=== PATIENT | male | born 1945 | race Caucasian/White ===

== ENCOUNTER 2018-04-27 07:43 | Outpatient (CLI) | payer MEDICARE, BC, SELFPAY ==
[2018-04-27 08:03] LABS: Abs Immature Grans 0.01 k/cumm (0.0-0.09); Absolute Basophil Count 0.03 k/cumm (0.0-0.2); Absolute Lymphocyte Count 0.77 k/cumm (1.2-3.4); Absolute Monocyte Count 0.58 k/cumm (0.11-0.7); Absolute Neutrophil Count 3.41 k/cumm (1.2-6.7); Basophils % 0.6; HCT 32.1 % (40.0-50.0); HGB 10.1 g/dL (13.5-17.5); Immature Grans % 0.2; Lymphocytes % 15.4; Mean Corp. HGB Concentration 31.5 g/dL (32.0-36.0); Mean Corpuscular Hemoglobin 30.1 pg (27.0-33.0); Mean Corpuscular Volume 95.8 fL (80-95); Mean Platelet Volume 10.4 fL (8.0-11.0); Monocytes % 11.6; Neutrophils % 68.2; Platelet Count 199 x1000/uL (130-400); RBC 3.35 m/cumm (4.50-6.00); RBC Distribution Width 15.7 % (11.8-14.1)
[2018-04-27 08:16] LABS: ALT 14 U/L (12-78); AST 12 U/L (15-37); Albumin 3.1 g/dL (3.4-5.0); Alkaline Phosphatase 119 U/L (46-116); Anion Gap 6.6 mmol/L (3-11); BUN 17 mg/dL (7-18); Bilirubin, Total 0.5 mg/dL (0.2-1.0); CO2 29.4 mmol/L (21.0-32.0); CREATININE 0.84 mg/dL (0.70-1.30); Calcium 8.3 mg/dL (8.5-10.1); Chloride 102 mmol/L (98-107); Glucose 78 mg/dL (70-100); Potassium 3.7 mmol/L (3.5-5.1); Sodium 138 mmol/L (136-145); Total Protein 6.8 g/dL (6.4-8.2)
[2018-04-28 09:36] LABS: PSA, Diagnostic 0.1 ng/ml (0-6.5)
[2018-04-30 13:40] LABS: Testosterone, Total <7.0 ng/dL (240-950)
== END 2018-04-27 07:44 ==
PROVIDERS: PCP Nurse Practitioner Family; Visit Provider Internal Medicine
DX: C61 Malignant neoplasm of prostate (principal); C79.51 Secondary malignant neoplasm of bone
CPT/HCPCS: 36415; 80053; 84403; 84153; 85025

== ENCOUNTER 2018-04-27 15:17 | Outpatient (CLI) | payer MEDICARE, BC, SELFPAY ==
--- NOTE | 2018-04-27 15:27 | DI.REPORT_ITS ---
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 In comparison with the previous examination of 12/28 there is markedly increased radiodensity of the left hemipelvis in an area previously apparently larger replaced by metastatic lesion. No acute fracture identified. There are marked degenerative changes of both hips and SI joints. CONCLUSION: No evidence of acute injury. Increased sclerosis of presumed osseous metastases since 12/28/17. I would note that the appearance of the left hemipelvis does have an appearance which would be consistent with Paget's disease and clinical correlation is requested regarding any known history of Paget's disease.
== END 2018-04-27 15:18 ==
PROVIDERS: PCP Nurse Practitioner Family; Visit Provider Nurse Practitioner Adult Health
DX: C61 Malignant neoplasm of prostate (principal); C79.51 Secondary malignant neoplasm of bone; M16.0 Bilateral primary osteoarthritis of hip; M53.3 Sacrococcygeal disorders, not elsewhere classified
CPT/HCPCS: 73502; 36415; 80053; 84403; 84153; 85025

== ENCOUNTER 2018-05-22 00:25 | Outpatient (CLI) | payer MEDICARE, BC, SELFPAY ==
--- NOTE | 2018-05-22 08:30 | DI.NM_ITS ---
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 There are areas of increased radiotracer uptake seen in the pelvis involving both right and left pubic rami and portions of the sacrum. There is also increased radiotracer uptake at the T12 vertebral body, ribs bilaterally and the right scapula. The findings are consistent with osseous metastatic disease. There is very faint renal enhancement. There is activity seen in the urinary bladder. IMPRESSION: Findings consistent with osseous metastatic disease. If there are prior examinations for comparison, they may be submitted for comparison and an Addendum will be issued at that time.
[2018-05-22 08:52] LABS: Abs Immature Grans 0.01 k/cumm (0.0-0.09); Absolute Basophil Count 0.03 k/cumm (0.0-0.2); Absolute Eosinophil Count 0.12 k/cumm (0.0-0.7); Absolute Lymphocyte Count 0.77 k/cumm (1.2-3.4); Absolute Monocyte Count 0.49 k/cumm (0.11-0.7); Absolute Neutrophil Count 3.17 k/cumm (1.2-6.7); Basophils % 0.7; Eosinophils % 2.6; HCT 30.7 % (40.0-50.0); HGB 9.8 g/dL (13.5-17.5); Immature Grans % 0.2; Lymphocytes % 16.8; Mean Corp. HGB Concentration 31.9 g/dL (32.0-36.0); Mean Corpuscular Hemoglobin 30.2 pg (27.0-33.0); Mean Corpuscular Volume 94.8 fL (80-95); Mean Platelet Volume 10.1 fL (8.0-11.0); Monocytes % 10.7; Platelet Count 272 x1000/uL (130-400); RBC 3.24 m/cumm (4.50-6.00); White Blood Cell Count 4.59 k/cumm (4.4-10.8)
[2018-05-22 09:05] LABS: Hypochromasia 2+
[2018-05-22] MEDS: Omnipaque 350 MG/ML 50 ML BTL IJ (09:05)
[2018-05-22] MEDS: Breeza Beverage 473 ML BTL PO (09:06)
[2018-05-22 09:10] LABS: ALT 19 U/L (12-78); AST 15 U/L (15-37); Albumin 3.1 g/dL (3.4-5.0); Alkaline Phosphatase 109 U/L (46-116); Anion Gap 7.6 mmol/L (3-11); BUN 23 mg/dL (7-18); Bilirubin, Total 0.3 mg/dL (0.2-1.0); CO2 28.4 mmol/L (21.0-32.0); CREATININE 0.68 mg/dL (0.70-1.30); Calcium 8.3 mg/dL (8.5-10.1); Chloride 104 mmol/L (98-107); Glucose 84 mg/dL (70-100); Potassium 4.3 mmol/L (3.5-5.1); Sodium 140 mmol/L (136-145); Total Protein 6.5 g/dL (6.4-8.2)
--- NOTE | 2018-05-22 10:05 | DI.CT_ITS ---
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 No priors. CT SCAN OF THE ABDOMEN AND PELVIS: The liver is normal in size. There is a mass in the posterior segment of the right lobe of the liver, measuring 4.5 cm transverse x 2.7 cm AP. It shows peripheral enhancement on the arterial and hepatic phases isodense to the aorta. There is progressive opacification of the mass between the arterial and the venous phase. The findings are most suggestive of a hepatic hemangioma. There are hypodense lesions seen within the liver, which show no enhancement. They are too small for further characterization but likely reflect cysts. The portal and superior mesenteric veins are patent. The gallbladder is negative by CT criteria. There is no biliary ductal dilatation. The pancreas is unremarkable, as are the spleen and adrenal glands. The kidneys show normal and symmetric enhancement. No suspicious solid renal mass or obstruction is identified. There is a hypodense lesion in the superior aspect of the right kidney. It is too small for further characterization, but likely reflects a cyst. The urinary bladder is intact. It is incompletely distended. There is apparent thickening of the wall of the urinary bladder. This may be due to underdistention. Inflammatory or infectious process cannot be excluded. The abdominal aorta is of normal caliber. There is mild atherosclerosis present. There does appear to be a small amount of abdominal ascites present. There is a large amount of stool throughout the colon, which may represent constipation. The bowel shows no evidence of obstruction or inflammation. No findings to suggest an acute appendicitis are present. There are findings consistent with extensive osseous metastatic disease. There is mild diffuse edema seen in the subcutaneous tissues in the abdomen and pelvis. IMPRESSION: 1. Extensive osseous sclerosis consistent with osseous metastatic disease. 2. Peripherally and progressively enhancing mass involving the right lobe of the liver, most suggestive of a hepatic hemangioma. 3. Large amount of retained stool throughout the colon suggesting constipation. 4. Generalized subcutaneous edema. CT SCAN OF THE CHEST: The thoracic aorta is of normal caliber with mild atherosclerosis. The heart size is within normal limits. No significant pericardial effusion is present. There is a small left pleural effusion and a moderate-sized right pleural effusion. There is a 3 mm noncalcified pulmonary nodule in the right lower lobe laterally. There is an area of consolidation involving the right upper lobe. The lungs are otherwise clear. No pneumothorax is seen. The tracheobronchial tree is unremarkable. There is osseous metastatic disease seen in the spine and ribs. Involvement of the right scapula is also noted. There is loss of height of the T12 vertebral body. This was not present on the prior examination of the MRI of the thoracic spine from 12/21/17. The finding is suspicious for a pathologic fracture. There is a right convex scoliosis of the thoracic spine. IMPRESSION: 1. Findings of osseous metastatic disease. 2. Loss of height of the T12 vertebral body most suggestive of pathologic fracture. This is age indeterminate. This was not present on the MRI from 12/21/17. 3. Moderate-sized right pleural effusion and small left pleural effusion. 4. Opacity seen in the right upper lobe. This may represent atelectasis or pneumonia. Underlying mass cannot be excluded.
[2018-05-23 10:46] LABS: PSA, Diagnostic <0.1 ng/ml (0-6.5)
[2018-05-25 08:43] LABS: Testosterone, Total <7.0 ng/dL (240-950)
== END 2018-05-22 00:45 ==
PROVIDERS: PCP Nurse Practitioner Family; Visit Provider Internal Medicine
DX: C61 Malignant neoplasm of prostate (principal); C79.51 Secondary malignant neoplasm of bone; D18.03 Hemangioma of intra-abdominal structures; K59.00 Constipation, unspecified; R60.0 Localized edema; J90 Pleural effusion, not elsewhere classified; J98.4 Other disorders of lung
CPT/HCPCS: 36415; 74177; 78306; 80053; 84403; 71260; 84153; 85025; Q9967

== ENCOUNTER 2018-08-14 08:40 | Outpatient (CLI) | payer MEDICARE, BC, SELFPAY ==
[2018-08-14 09:04] LABS: Absolute Basophil Count 0.03 k/cumm (0.0-0.2); Absolute Eosinophil Count 0.42 k/cumm (0.0-0.7); Absolute Monocyte Count 0.37 k/cumm (0.11-0.7); Absolute Neutrophil Count 2.79 k/cumm (1.2-6.7); Basophils % 0.7; Eosinophils % 9.5; HCT 36.2 % (40.0-50.0); HGB 11.6 g/dL (13.5-17.5); Lymphocytes % 18.1; Mean Corpuscular Hemoglobin 28.9 pg (27.0-33.0); Mean Platelet Volume 9.9 fL (8.0-11.0); Monocytes % 8.4; Neutrophils % 63.3; Platelet Count 267 x1000/uL (130-400); RBC 4.02 m/cumm (4.50-6.00); White Blood Cell Count 4.41 k/cumm (4.4-10.8)
[2018-08-14 09:20] LABS: ALT 24 U/L (12-78); AST 18 U/L (15-37); Albumin 3.4 g/dL (3.4-5.0); Alkaline Phosphatase 115 U/L (46-116); Anion Gap 8.7 mmol/L (3-11); BUN 26 mg/dL (7-18); Bilirubin, Total 0.3 mg/dL (0.2-1.0); CO2 29.3 mmol/L (21.0-32.0); CREATININE 0.74 mg/dL (0.70-1.30); Calcium 9.2 mg/dL (8.5-10.1); Chloride 104 mmol/L (98-107); Glucose 78 mg/dL (70-100); Sodium 142 mmol/L (136-145)
[2018-08-15 08:49] LABS: PSA, Diagnostic <0.1 ng/ml (0-6.5)
[2018-08-17 08:31] LABS: Testosterone, Total <7.0 ng/dL (240-950)
== END 2018-08-14 09:00 ==
PROVIDERS: PCP Nurse Practitioner Family; Visit Provider Internal Medicine
DX: C61 Malignant neoplasm of prostate (principal); C79.51 Secondary malignant neoplasm of bone
CPT/HCPCS: 36415; 80053; 84403; 84153; 85025

== ENCOUNTER 2018-10-02 13:37 | Outpatient (CLI) | payer MEDICARE, BC, SELFPAY ==
[2018-10-02 14:28] LABS: Abs Immature Grans 0.01 k/cumm (0.0-0.09); Absolute Basophil Count 0.01 k/cumm (0.0-0.2); Absolute Lymphocyte Count 1.37 k/cumm (1.2-3.4); Absolute Monocyte Count 0.64 k/cumm (0.11-0.7); Absolute Neutrophil Count 5.12 k/cumm (1.2-6.7); Basophils % 0.1; Eosinophils % 1.4; HCT 34.2 % (40.0-50.0); Immature Grans % 0.1; Lymphocytes % 18.9; Mean Corp. HGB Concentration 32.2 g/dL (32.0-36.0); Mean Corpuscular Hemoglobin 30.2 pg (27.0-33.0); Mean Platelet Volume 10.5 fL (8.0-11.0); Monocytes % 8.8; Neutrophils % 70.7; Platelet Count 296 x1000/uL (130-400); RBC 3.64 m/cumm (4.50-6.00); RBC Distribution Width 15.5 % (11.8-14.1); White Blood Cell Count 7.25 k/cumm (4.4-10.8)
[2018-10-02 14:47] LABS: ALT 20 U/L (12-78); AST 13 U/L (15-37); Albumin 3.4 g/dL (3.4-5.0); Alkaline Phosphatase 126 U/L (46-116); Anion Gap 7.4 mmol/L (3-11); BUN 22 mg/dL (7-18); Bilirubin, Total 0.2 mg/dL (0.2-1.0); CO2 30.6 mmol/L (21.0-32.0); Calcium 8.9 mg/dL (8.5-10.1); Chloride 103 mmol/L (98-107); Glucose 97 mg/dL (70-100); Potassium 3.9 mmol/L (3.5-5.1); Sodium 141 mmol/L (136-145); Total Protein 6.7 g/dL (6.4-8.2)
[2018-10-03 10:05] LABS: PSA, Diagnostic <0.1 ng/ml (0-6.5)
[2018-10-06 10:27] LABS: Testosterone, Total <7.0 ng/dL (240-950)
== END 2018-10-02 13:57 ==
PROVIDERS: PCP Nurse Practitioner Family; Visit Provider Internal Medicine
DX: C61 Malignant neoplasm of prostate (principal); C79.51 Secondary malignant neoplasm of bone
CPT/HCPCS: 36415; 80053; 84403; 84153; 85025

== ENCOUNTER 2018-11-13 12:25 | Outpatient (CLI) | payer MEDICARE, BC, SELFPAY ==
[2018-11-13 12:49] LABS: Absolute Basophil Count 0.02 k/cumm (0.0-0.2); Absolute Eosinophil Count 0.13 k/cumm (0.0-0.7); Absolute Lymphocyte Count 0.88 k/cumm (1.2-3.4); Absolute Monocyte Count 0.53 k/cumm (0.11-0.7); Absolute Neutrophil Count 2.09 k/cumm (1.2-6.7); Basophils % 0.5; Eosinophils % 3.6; HCT 36.9 % (40.0-50.0); HGB 11.8 g/dL (13.5-17.5); Lymphocytes % 24.1; Mean Corpuscular Hemoglobin 29.7 pg (27.0-33.0); Mean Corpuscular Volume 92.9 fL (80-95); Mean Platelet Volume 10.2 fL (8.0-11.0); Monocytes % 14.5; Neutrophils % 57.3; Platelet Count 246 x1000/uL (130-400); RBC 3.97 m/cumm (4.50-6.00); RBC Distribution Width 14.4 % (11.8-14.1); White Blood Cell Count 3.65 k/cumm (4.4-10.8)
[2018-11-13 12:58] LABS: ALT 24 U/L (12-78); AST 17 U/L (15-37); Albumin 3.7 g/dL (3.4-5.0); Alkaline Phosphatase 141 U/L (46-116); Anion Gap 6.8 mmol/L (3-11); BUN 14 mg/dL (7-18); Bilirubin, Total 0.4 mg/dL (0.2-1.0); CO2 30.2 mmol/L (21.0-32.0); CREATININE 0.81 mg/dL (0.70-1.30); Calcium 8.9 mg/dL (8.5-10.1); Chloride 103 mmol/L (98-107); Glucose 96 mg/dL (70-100); Sodium 140 mmol/L (136-145); Total Protein 7.4 g/dL (6.4-8.2)
[2018-11-13 14:15] LABS: Cholesterol 241 mg/dL (50-200); HDL Cholesterol 64 mg/dL (40-60); LDL CHOLESTEROL 160 mg/dL (<100); Triglyceride 123 mg/dL (30-150)
[2018-11-14 09:24] LABS: PSA, Diagnostic <0.1 ng/ml (0-6.5)
[2018-11-15 10:52] LABS: Testosterone, Total 7.8 ng/dL (240-950)
== END 2018-11-13 12:45 ==
PROVIDERS: PCP Nurse Practitioner Family; Referring Provider Internal Medicine; Visit Provider Nurse Practitioner Family
DX: C61 Malignant neoplasm of prostate (principal); C79.51 Secondary malignant neoplasm of bone; E78.89 Other lipoprotein metabolism disorders
CPT/HCPCS: 36415; 80053; 80061; 83721; 84403; 84153; 85025

== ENCOUNTER 2018-12-12 08:28 | Outpatient (CLI) | payer MEDICARE, BC, SELFPAY ==
[2018-12-12 08:53] LABS: Absolute Basophil Count 0.02 k/cumm (0.0-0.2); Absolute Eosinophil Count 0.25 k/cumm (0.0-0.7); Absolute Lymphocyte Count 0.83 k/cumm (1.2-3.4); Absolute Monocyte Count 0.42 k/cumm (0.11-0.7); Absolute Neutrophil Count 2.46 k/cumm (1.2-6.7); Basophils % 0.5; Eosinophils % 6.3; HCT 35.7 % (40.0-50.0); HGB 11.4 g/dL (13.5-17.5); Lymphocytes % 20.9; Mean Corp. HGB Concentration 31.9 g/dL (32.0-36.0); Mean Corpuscular Hemoglobin 29.3 pg (27.0-33.0); Mean Corpuscular Volume 91.8 fL (80-95); Mean Platelet Volume 10.3 fL (8.0-11.0); Monocytes % 10.6; Neutrophils % 61.7; Platelet Count 220 x1000/uL (130-400); RBC 3.89 m/cumm (4.50-6.00); RBC Distribution Width 14.2 % (11.8-14.1); White Blood Cell Count 3.98 k/cumm (4.4-10.8)
[2018-12-12 09:06] LABS: ALT 25 U/L (12-78); AST 15 U/L (15-37); Albumin 3.7 g/dL (3.4-5.0); Alkaline Phosphatase 118 U/L (46-116); Anion Gap 7.9 mmol/L (3-11); BUN 26 mg/dL (7-18); Bilirubin, Total 0.3 mg/dL (0.2-1.0); CO2 29.1 mmol/L (21.0-32.0); Chloride 104 mmol/L (98-107); Glucose 69 mg/dL (70-100); Potassium 4.4 mmol/L (3.5-5.1); Sodium 141 mmol/L (136-145)
[2018-12-13 09:35] LABS: PSA, Diagnostic <0.1 ng/ml (0-6.5)
== END 2018-12-12 08:48 ==
PROVIDERS: PCP Nurse Practitioner Family; Visit Provider Nurse Practitioner Family
DX: C61 Malignant neoplasm of prostate (principal)
CPT/HCPCS: 36415; 80053; 84153; 85025

== ENCOUNTER 2019-02-20 11:59 | Outpatient (CLI) | payer MEDICARE, BC, SELFPAY ==
[2019-02-20 12:23] LABS: Absolute Basophil Count 0.03 k/cumm (0.0-0.2); Absolute Eosinophil Count 0.18 k/cumm (0.0-0.7); Absolute Lymphocyte Count 0.74 k/cumm (1.2-3.4); Absolute Monocyte Count 0.47 k/cumm (0.11-0.7); Absolute Neutrophil Count 2.42 k/cumm (1.2-6.7); Basophils % 0.8; Eosinophils % 4.7; HCT 36.5 % (40.0-50.0); HGB 11.9 g/dL (13.5-17.5); Lymphocytes % 19.3; Mean Corp. HGB Concentration 32.6 g/dL (32.0-36.0); Mean Corpuscular Hemoglobin 30.4 pg (27.0-33.0); Mean Corpuscular Volume 93.4 fL (80-95); Mean Platelet Volume 10.1 fL (8.0-11.0); Monocytes % 12.2; Platelet Count 205 x1000/uL (130-400); RBC 3.91 m/cumm (4.50-6.00); RBC Distribution Width 14.9 % (11.8-14.1); White Blood Cell Count 3.84 k/cumm (4.4-10.8)
[2019-02-20 12:47] LABS: ALT 25 U/L (12-78); AST 16 U/L (15-37); Albumin 3.9 g/dL (3.4-5.0); Alkaline Phosphatase 110 U/L (46-116); BUN 22 mg/dL (7-18); Bilirubin, Total 0.5 mg/dL (0.2-1.0); CREATININE 0.79 mg/dL (0.70-1.30); Calcium 8.9 mg/dL (8.5-10.1); Chloride 104 mmol/L (98-107); Glucose 89 mg/dL (70-100); Potassium 4.3 mmol/L (3.5-5.1); Sodium 140 mmol/L (136-145); Total Protein 7.5 g/dL (6.4-8.2)
[2019-02-21 08:45] LABS: PSA, Diagnostic <0.1 ng/ml (0-6.5)
[2019-02-23 16:16] LABS: Testosterone, Total <7.0 ng/dL (240-950)
== END 2019-02-20 12:19 ==
PROVIDERS: PCP Nurse Practitioner Family; Visit Provider Internal Medicine
DX: C61 Malignant neoplasm of prostate (principal)
CPT/HCPCS: 36415; 80053; 84403; 84153; 85025

== ENCOUNTER 2019-03-22 00:33 | Outpatient (CLI) | payer MEDICARE, BC, SELFPAY ==
--- NOTE | 2019-03-22 09:20 | DI.CT_ITS ---
SYMPTOM/DIAGNOSIS: PROSTATE CA METS TO MULTIPLE SITES C61. RESTAGING MET PROSTATE CA CT CHEST, ABDOMEN AND PELVIS: The study was carried out with intravenous administration of [address] CHEST: A right upper lobe mass is decreased in size when compared with the prior examination of 05/22/2018. No other pulmonary mass is identified. There is resolution of a right pleural effusion. No left pleural effusion is apparent. There is no evidence of hilar or mediastinal adenopathy. The heart is not enlarged. There is no evidence of pulmonary emboli. There is no evidence of an aortic aneurysm. When compared with the previous study again noted are the bony changes consistent with metastatic disease involving the ribs and spine. Again noted is a mild superior end plate compression fracture of the T-12 vertebral body. No new fractures are apparent. Again noted is a region of sclerosis involving the right scapula. There is a mild dextroscoliotic deformity of the dorsal spine. SUMMARY: Diminished prominence of what likely represents a right upper lobe mass is demonstrated. There is resolution of a right pleural effusion. Again noted, the findings consistent with bony metastasis without appreciable interval change when compared with the prior study. CT ABDOMEN AND PELVIS: A region of abnormality is noted in the right hepatic lobe unchanged, consistent with a hemangioma. No other focal abnormality is noted in the liver. The gallbladder is intact. The gallbladder is normal. There is no evidence of stones or ductal dilatation. The pancreas and spleen are intact save for small bilateral cortical cysts. The kidneys are unremarkable. There is no evidence of hydronephrosis. There is some prominence of the left adrenal gland likely representing hypertrophy. The right adrenal is unremarkable. There is no evidence of bowel obstruction or focal bowel abnormality. There is nothing to suggest an acute appendix. Evaluation of the bladder is limited secondary to artifacts generated by a left hip prosthesis. No localized bladder abnormality is seen. There is some slight thickening of the bladder wall which is likely secondary to suboptimal distension. The reproductive organs as visualized appear intact. There is no evidence of free fluid in the intraperitoneal space. When compared with the prior study again noted is diffuse bony metastatic disease. There has been considerable enlargement in an area of bony destruction involving the parasymphyseal region of the right pubic bone. No adenopathy is identified in the pelvis. SUMMARY: No intra-abdominal or pelvic adenopathy is identified. Again noted are diffuse bony metastasis and interval deterioration with enlarging lytic lesion noted in the right pubic bone. No adenopathy is apparent.
[2019-03-22 09:29] LABS: Absolute Basophil Count 0.02 k/cumm (0.0-0.2); Absolute Eosinophil Count 0.24 k/cumm (0.0-0.7); Absolute Lymphocyte Count 0.78 k/cumm (1.2-3.4); Absolute Monocyte Count 0.32 k/cumm (0.11-0.7); Absolute Neutrophil Count 2.22 k/cumm (1.2-6.7); Basophils % 0.6; Eosinophils % 6.7; HCT 36.6 % (40.0-50.0); HGB 12.3 g/dL (13.5-17.5); Lymphocytes % 21.8; Mean Corp. HGB Concentration 33.6 g/dL (32.0-36.0); Mean Corpuscular Hemoglobin 30.9 pg (27.0-33.0); Mean Platelet Volume 10.4 fL (8.0-11.0); Monocytes % 8.9; Platelet Count 212 x1000/uL (130-400); RBC 3.98 m/cumm (4.50-6.00); RBC Distribution Width 14.1 % (11.8-14.1); White Blood Cell Count 3.58 k/cumm (4.4-10.8)
[2019-03-22 09:39] LABS: ALT 23 U/L (12-78); AST 13 U/L (15-37); Albumin 3.6 g/dL (3.4-5.0); Alkaline Phosphatase 90 U/L (46-116); Anion Gap 9.5 mmol/L (3-11); BUN 18 mg/dL (7-18); Bilirubin, Total 0.4 mg/dL (0.2-1.0); CO2 27.5 mmol/L (21.0-32.0); Calcium 8.6 mg/dL (8.5-10.1); Chloride 104 mmol/L (98-107); Glucose 95 mg/dL (70-100); Potassium 4.3 mmol/L (3.5-5.1); Sodium 141 mmol/L (136-145); Total Protein 7.1 g/dL (6.4-8.2)
--- NOTE | 2019-03-22 10:30 | DI.NM_ITS ---
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 The study is compared with the prior bone scan of 05/22/18. Interval improvement is demonstrated with diminished prominence of the regions of increased photon density in the ribs, right scapula and spine. Also there is diminished activity in the pelvic metastases. There is symmetrical activity over the renal beds. The patient is status post left MURPHY. SUMMARY: When compared with the previous study, interval improvement is noted with diminished conspicuity of the bony metastases.
[2019-03-22] MEDS: Omnipaque 350 MG/ML 100 ML BTL IJ (11:10)
[2019-03-23 09:41] LABS: PSA, Diagnostic <0.1 ng/ml (0-6.5)
[2019-03-26 13:06] LABS: Testosterone, Total 8.5 ng/dL (240-950)
== END 2019-03-22 00:53 ==
PROVIDERS: PCP Nurse Practitioner Family; Visit Provider Internal Medicine
DX: C61 Malignant neoplasm of prostate (principal); C79.51 Secondary malignant neoplasm of bone; Z12.89 Encounter for screening for malignant neoplasm of other sites; R91.8 Other nonspecific abnormal finding of lung field
CPT/HCPCS: 36415; 74177; 78306; 80053; 84403; 71260; 84153; 85025; J3490

== ENCOUNTER 2019-04-12 15:11 | Outpatient (CLI) | payer MEDICARE, BC, SELFPAY ==
[2019-04-12 15:49] LABS: Absolute Basophil Count 0.02 k/cumm (0.0-0.2); Absolute Eosinophil Count 0.42 k/cumm (0.0-0.7); Absolute Lymphocyte Count 0.97 k/cumm (1.2-3.4); Absolute Neutrophil Count 2.31 k/cumm (1.2-6.7); Basophils % 0.5; Eosinophils % 10.2; HCT 36.3 % (40.0-50.0); Lymphocytes % 23.5; Mean Corp. HGB Concentration 33.1 g/dL (32.0-36.0); Mean Corpuscular Hemoglobin 30.7 pg (27.0-33.0); Mean Corpuscular Volume 92.8 fL (80-95); Mean Platelet Volume 10.8 fL (8.0-11.0); Monocytes % 9.7; Neutrophils % 56.1; Platelet Count 200 x1000/uL (130-400); RBC 3.91 m/cumm (4.50-6.00); RBC Distribution Width 13.8 % (11.8-14.1); White Blood Cell Count 4.12 k/cumm (4.4-10.8)
[2019-04-12 16:27] LABS: ALT 24 U/L (12-78); AST 14 U/L (15-37); Albumin 3.7 g/dL (3.4-5.0); Alkaline Phosphatase 94 U/L (46-116); BUN 20 mg/dL (7-18); Bilirubin, Total 0.3 mg/dL (0.2-1.0); CREATININE 0.77 mg/dL (0.70-1.30); Calcium 8.5 mg/dL (8.5-10.1); Chloride 105 mmol/L (98-107); Glucose 93 mg/dL (70-100); Potassium 4.6 mmol/L (3.5-5.1); Sodium 141 mmol/L (136-145); Total Protein 6.8 g/dL (6.4-8.2)
[2019-04-13 09:30] LABS: PSA, Diagnostic <0.1 ng/ml (0-6.5)
[2019-04-14 12:05] LABS: Testosterone, Total <7.0 ng/dL (240-950)
== END 2019-04-12 15:31 ==
PROVIDERS: PCP Nurse Practitioner Family; Visit Provider Nurse Practitioner Family
DX: C61 Malignant neoplasm of prostate (principal)
CPT/HCPCS: 36415; 80053; 84403; 84153; 85025

== ENCOUNTER 2019-06-29 11:03 | Outpatient (CLI) | payer MEDICARE, BC, SELFPAY ==
[2019-06-29 12:06] LABS: Abs Immature Grans 0.01 k/cumm (0.0-0.09); Absolute Basophil Count 0.03 k/cumm (0.0-0.2); Absolute Lymphocyte Count 0.95 k/cumm (1.2-3.4); Absolute Monocyte Count 0.35 k/cumm (0.11-0.7); Absolute Neutrophil Count 1.58 k/cumm (1.2-6.7); Eosinophils % 6.4; HCT 39.5 % (40.0-50.0); HGB 12.9 g/dL (13.5-17.5); Immature Grans % 0.3; Lymphocytes % 30.4; Mean Corp. HGB Concentration 32.7 g/dL (32.0-36.0); Mean Corpuscular Hemoglobin 30.9 pg (27.0-33.0); Mean Corpuscular Volume 94.7 fL (80-95); Mean Platelet Volume 10.5 fL (8.0-11.0); Monocytes % 11.2; Neutrophils % 50.7; Platelet Count 245 x1000/uL (130-400); RBC 4.17 m/cumm (4.50-6.00); RBC Distribution Width 13.8 % (11.8-14.1); White Blood Cell Count 3.12 k/cumm (4.4-10.8)
[2019-06-29 12:12] LABS: ALT 24 U/L (16-63); AST 14 U/L (15-37); Albumin 3.7 g/dL (3.4-5.0); Alkaline Phosphatase 80 U/L (46-116); Anion Gap 8.5 mmol/L (3-11); BUN 22 mg/dL (7-18); Bilirubin, Total 0.5 mg/dL (0.2-1.0); CO2 25.5 mmol/L (21.0-32.0); CREATININE 0.83 mg/dL (0.70-1.30); Chloride 104 mmol/L (98-107); Glucose 95 mg/dL (70-100); Potassium 4.6 mmol/L (3.5-5.1); Sodium 138 mmol/L (136-145); Total Protein 7.5 g/dL (6.4-8.2)
[2019-07-02 09:33] LABS: PSA, Diagnostic <0.1 ng/ml (0-6.5)
[2019-07-04 10:35] LABS: Testosterone, Total <7.0 ng/dL (240-950)
== END 2019-06-29 11:23 ==
PROVIDERS: PCP Nurse Practitioner Family; Visit Provider Nurse Practitioner Family
DX: C61 Malignant neoplasm of prostate (principal)
CPT/HCPCS: 36415; 80053; 84403; 84153; 84443; 85025

== ENCOUNTER 2019-09-26 10:38 | Outpatient (CLI) | payer MEDICARE, BC, SELFPAY ==
[2019-09-26 11:10] LABS: Absolute Basophil Count 0.04 k/cumm (0.0-0.2); Absolute Eosinophil Count 0.24 k/cumm (0.0-0.7); Absolute Lymphocyte Count 1.01 k/cumm (1.2-3.4); Absolute Monocyte Count 0.39 k/cumm (0.11-0.7); Absolute Neutrophil Count 2.25 k/cumm (1.2-6.7); Eosinophils % 6.1; HCT 39.5 % (40.0-50.0); HGB 13.2 g/dL (13.5-17.5); Lymphocytes % 25.7; Mean Corp. HGB Concentration 33.4 g/dL (32.0-36.0); Mean Corpuscular Hemoglobin 31.4 pg (27.0-33.0); Mean Platelet Volume 9.8 fL (8.0-11.0); Monocytes % 9.9; Neutrophils % 57.3; Platelet Count 224 x1000/uL (130-400); RBC Distribution Width 13.1 % (11.8-14.1); White Blood Cell Count 3.93 k/cumm (4.4-10.8)
[2019-09-26 12:07] LABS: ALT 18 U/L (16-63); AST 14 U/L (15-37); Albumin 3.7 g/dL (3.4-5.0); Alkaline Phosphatase 71 U/L (46-116); Anion Gap 7.5 mmol/L (3-11); BUN 16 mg/dL (7-18); Bilirubin, Total 0.5 mg/dL (0.2-1.0); CO2 29.5 mmol/L (21.0-32.0); CREATININE 0.84 mg/dL (0.70-1.30); Chloride 105 mmol/L (98-107); Glucose 95 mg/dL (74-106); Potassium 4.7 mmol/L (3.5-5.1); Sodium 142 mmol/L (136-145); Total Protein 6.6 g/dL (6.4-8.2)
[2019-09-27 10:18] LABS: PSA, Diagnostic <0.1 ng/mL (0.0-6.5)
[2019-09-28 10:42] LABS: Testosterone, Total <7.0 ng/dL (240-950)
== END 2019-09-26 10:58 ==
PROVIDERS: PCP Nurse Practitioner Family; Visit Provider Nurse Practitioner Family
DX: C61 Malignant neoplasm of prostate (principal)
CPT/HCPCS: 36415; 80053; 84403; 84153; 85025

== ENCOUNTER 2019-10-16 12:04 | Outpatient (CLI) | payer MEDICARE, BC, SELFPAY ==
[2019-10-16 12:36] LABS: Absolute Basophil Count 0.03 k/cumm (0.0-0.2); Absolute Eosinophil Count 0.17 k/cumm (0.0-0.7); Absolute Lymphocyte Count 0.92 k/cumm (1.2-3.4); Absolute Monocyte Count 0.27 k/cumm (0.11-0.7); Absolute Neutrophil Count 1.57 k/cumm (1.2-6.7); Eosinophils % 5.7; HCT 39.8 % (40.0-50.0); Lymphocytes % 31.1; Mean Corp. HGB Concentration 32.7 g/dL (32.0-36.0); Mean Corpuscular Hemoglobin 31.1 pg (27.0-33.0); Mean Corpuscular Volume 95.2 fL (80-95); Mean Platelet Volume 10.3 fL (8.0-11.0); Monocytes % 9.1; Neutrophils % 53.1; Platelet Count 231 x1000/uL (130-400); RBC 4.18 m/cumm (4.50-6.00); RBC Distribution Width 13.2 % (11.8-14.1); White Blood Cell Count 2.96 k/cumm (4.4-10.8)
[2019-10-16 12:38] LABS: ALT 19 U/L (16-63); AST 15 U/L (15-37); Alkaline Phosphatase 64 U/L (46-116); Anion Gap 8.2 mmol/L (3-11); BUN 16 mg/dL (7-18); Bilirubin, Total 0.4 mg/dL (0.2-1.0); CO2 29.8 mmol/L (21.0-32.0); CREATININE 0.91 mg/dL (0.70-1.30); Chloride 106 mmol/L (98-107); Glucose 97 mg/dL (74-106); Potassium 4.7 mmol/L (3.5-5.1); Sodium 144 mmol/L (136-145); Total Protein 7.3 g/dL (6.4-8.2)
[2019-10-17 14:01] LABS: PSA, Diagnostic <0.1 ng/mL (0.0-6.5)
== END 2019-10-16 12:24 ==
PROVIDERS: PCP Nurse Practitioner Family; Visit Provider Nurse Practitioner Family
DX: C61 Malignant neoplasm of prostate (principal)
CPT/HCPCS: 36415; 80053; 84403; 84153; 85025

== ENCOUNTER 2020-01-10 15:29 | Outpatient (RCR) | payer MEDICARE, BC, SELFPAY ==
[2020-01-10 16:03] LABS: Absolute Basophil Count 0.02 k/cumm (0.0-0.2); Absolute Eosinophil Count 0.21 k/cumm (0.0-0.7); Absolute Monocyte Count 0.34 k/cumm (0.11-0.7); Absolute Neutrophil Count 2.58 k/cumm (1.2-6.7); Basophils % 0.4; Eosinophils % 4.7; HCT 41.2 % (40.0-50.0); HGB 13.9 g/dL (13.5-17.5); Lymphocytes % 29.2; Mean Corp. HGB Concentration 33.7 g/dL (32.0-36.0); Mean Corpuscular Hemoglobin 31.7 pg (27.0-33.0); Mean Corpuscular Volume 93.8 fL (80-95); Mean Platelet Volume 10.3 fL (8.0-11.0); Monocytes % 7.6; Neutrophils % 58.1; Platelet Count 228 x1000/uL (130-400); RBC 4.39 m/cumm (4.50-6.00); RBC Distribution Width 12.8 % (11.8-14.1); White Blood Cell Count 4.45 k/cumm (4.4-10.8)
[2020-01-10 16:12] LABS: ALT 26 U/L (16-63); AST 20 U/L (15-37); Albumin 4.3 g/dL (3.4-5.0); Alkaline Phosphatase 79 U/L (46-116); Anion Gap 7.7 mmol/L (3-11); BUN 12 mg/dL (7-18); Bilirubin, Total 0.5 mg/dL (0.2-1.0); CO2 30.3 mmol/L (21.0-32.0); CREATININE 0.99 mg/dL (0.70-1.30); Calcium 9.1 mg/dL (8.5-10.1); Chloride 100 mmol/L (98-107); Glucose 81 mg/dL (74-106); Sodium 138 mmol/L (136-145); Total Protein 8.1 g/dL (6.4-8.2)
[2020-01-13 11:24] LABS: Testosterone, Total <7.0 ng/dL (240-950)
[2020-01-14 14:06] LABS: PSA, Ultrasensitive <0.01 ng/mL (<= 6.5)
== END 2020-02-03 23:59 | disposition home or self-care (01) ==
LOC: INF 15:29
PROVIDERS: PCP Nurse Practitioner Family; Visit Provider Internal Medicine
DX: C61 Malignant neoplasm of prostate (principal)
CPT/HCPCS: 36415; 80053; 84153; 84403; 85025

== ENCOUNTER 2020-03-20 02:40 | Outpatient (CLI) | payer MEDICARE, BC, SELFPAY ==
[2020-03-20 09:45] LABS: Absolute Basophil Count 0.02 k/cumm (0.0-0.2); Absolute Eosinophil Count 0.14 k/cumm (0.0-0.7); Absolute Lymphocyte Count 0.97 k/cumm (1.2-3.4); Absolute Monocyte Count 0.29 k/cumm (0.11-0.7); Absolute Neutrophil Count 2.04 k/cumm (1.2-6.7); Basophils % 0.6; HCT 40.1 % (40.0-50.0); HGB 13.1 g/dL (13.5-17.5); Mean Corp. HGB Concentration 32.7 g/dL (32.0-36.0); Mean Corpuscular Hemoglobin 30.9 pg (27.0-33.0); Mean Corpuscular Volume 94.6 fL (80-95); Mean Platelet Volume 10.8 fL (8.0-11.0); Monocytes % 8.4; Platelet Count 215 x1000/uL (130-400); RBC 4.24 m/cumm (4.50-6.00); RBC Distribution Width 13.4 % (11.8-14.1); White Blood Cell Count 3.46 k/cumm (4.4-10.8)
[2020-03-20 10:38] LABS: ALT 21 U/L (16-63); AST 16 U/L (15-37); Alkaline Phosphatase 60 U/L (46-116); Anion Gap 7.8 mmol/L (3-11); BUN 21 mg/dL (7-18); Bilirubin, Total 0.4 mg/dL (0.2-1.0); CO2 27.2 mmol/L (21.0-32.0); CREATININE 0.77 mg/dL (0.70-1.30); Calcium 9.2 mg/dL (8.5-10.1); Chloride 104 mmol/L (98-107); Glucose 86 mg/dL (74-106); Potassium 4.3 mmol/L (3.5-5.1); Sodium 139 mmol/L (136-145); Total Protein 6.8 g/dL (6.4-8.2)
[2020-03-21 10:31] LABS: PSA, Diagnostic <0.1 ng/mL (0.0-6.5)
[2020-03-23 14:38] LABS: Testosterone, Total 7.6 ng/dL (240-950)
== END 2020-03-20 03:00 ==
PROVIDERS: PCP Nurse Practitioner Family; Visit Provider Nurse Practitioner Family
DX: C61 Malignant neoplasm of prostate (principal)
CPT/HCPCS: 36415; 80053; 84403; 84153; 85025

== ENCOUNTER 2020-04-17 03:20 | Outpatient (CLI) | payer MEDICARE, BC, SELFPAY ==
[2020-04-17 13:45] LABS: Absolute Basophil Count 0.03 10^3/uL (0.0-0.2); Absolute Eosinophil Count 0.18 10^3/uL (0.0-0.7); Absolute Lymphocyte Count 1.01 10^3/uL (1.2-3.4); Absolute Monocyte Count 0.33 10^3/uL (0.1-0.8); Absolute Neutrophil Count 2.17 10^3/uL (1.2-6.7); Basophils % 0.8; Eosinophils % 4.8; HCT 37.4 % (40.0-50.0); HGB 12.4 g/dL (13.5-17.5); Lymphocytes % 27.2; MCH 31.5 pg (27.0-33.0); MCHC 33.2 % (32.0-36.0); MCV 94.9 fL (80-95); MPV 10.5 fL (8.0-11.0); Monocytes % 8.9; Neutrophils % 58.3; Nucleated RBC 0 %; Platelet Count 190 10^3/uL (130-400); RBC 3.94 10^6/uL (4.36-5.78); RDW 12.7 % (11.8-14.1); WBC 3.72 10^3/uL (4.4-10.8)
[2020-04-17 14:24] LABS: ALT 20 U/L (16-63); AST 13 U/L (15-37); Albumin 3.6 g/dL (3.4-5.0); Alkaline Phosphatase 85 U/L (46-116); Anion Gap 4.6 mmol/L (3-11); BUN 12 mg/dL (7-18); Bilirubin, Total 0.4 mg/dL (0.2-1.0); CO2 30.4 mmol/L (21.0-32.0); CREATININE 0.75 mg/dL (0.70-1.30); Calcium 8.7 mg/dL (8.5-10.1); Chloride 104 mmol/L (98-107); Glucose 91 mg/dL (74-106); Potassium 4.3 mmol/L (3.5-5.1); Sodium 139 mmol/L (136-145); Total Protein 6.5 g/dL (6.4-8.2)
[2020-04-18 11:34] LABS: PSA, Diagnostic <0.1 ng/mL (0.0-6.5)
== END 2020-04-17 03:40 ==
PROVIDERS: PCP Nurse Practitioner Family; Visit Provider Nurse Practitioner Family
DX: C61 Malignant neoplasm of prostate (principal)
CPT/HCPCS: 36415; 80053; 84403; 84153; 85025

== ENCOUNTER 2020-07-17 02:19 | Outpatient (CLI) | payer MEDICARE, BC, SELFPAY ==
[2020-07-17 10:15] LABS: Abs Immature Grans 0.01 10^3/uL (0.0-0.06); Absolute Basophil Count 0.02 10^3/uL (0.0-0.2); Absolute Eosinophil Count 0.17 10^3/uL (0.0-0.7); Absolute Lymphocyte Count 1.35 10^3/uL (1.2-3.4); Absolute Monocyte Count 0.39 10^3/uL (0.1-0.8); Absolute Neutrophil Count 1.88 10^3/uL (1.2-6.7); Basophils % 0.5; Eosinophils % 4.5; HCT 40.2 % (40.0-50.0); HGB 13.3 g/dL (13.5-17.5); Immature Grans % 0.3; Lymphocytes % 35.3; MCH 31.4 pg (27.0-33.0); MCHC 33.1 % (32.0-36.0); MCV 94.8 fL (80-95); MPV 10.5 fL (8.0-11.0); Monocytes % 10.2; Neutrophils % 49.2; Nucleated RBC 0 %; Platelet Count 198 10^3/uL (130-400); RBC 4.24 10^6/uL (4.36-5.78); RDW 12.8 % (11.8-14.1); RDW-SD 44.7 fL; WBC 3.82 10^3/uL (4.4-10.8)
[2020-07-17 10:29] LABS: ALT 22 U/L (16-63); AST 17 U/L (15-37); Albumin 3.9 g/dL (3.4-5.0); Alkaline Phosphatase 81 U/L (46-116); Anion Gap 7.5 mmol/L (3-11); BUN 14 mg/dL (7-18); Bilirubin, Total 0.6 mg/dL (0.2-1.0); CO2 29.5 mmol/L (21.0-32.0); CREATININE 0.88 mg/dL (0.70-1.30); Calcium 9.6 mg/dL (8.5-10.1); Chloride 103 mmol/L (98-107); Glucose 92 mg/dL (74-106); Potassium 4.3 mmol/L (3.5-5.1); Sodium 140 mmol/L (136-145); Total Protein 7.5 g/dL (6.4-8.2)
[2020-07-18 11:38] LABS: PSA, Ultrasensitive <0.01 ng/mL (<= 6.5)
[2020-07-20 12:24] LABS: Testosterone, Total 9.4 ng/dL (240-950)
== END 2020-07-17 02:39 ==
PROVIDERS: PCP Nurse Practitioner Family; Visit Provider Internal Medicine
DX: C61 Malignant neoplasm of prostate (principal)
CPT/HCPCS: 36415; 80053; 84153; 84403; 85025

== ENCOUNTER 2020-10-16 02:57 | Outpatient (CLI) | payer MEDICARE, BC, SELFPAY ==
[2020-10-16 11:30] LABS: Absolute Basophil Count 0.03 10^3/uL (0.0-0.2); Absolute Eosinophil Count 0.12 10^3/uL (0.0-0.7); Absolute Lymphocyte Count 1.22 10^3/uL (1.2-3.4); Absolute Monocyte Count 0.38 10^3/uL (0.1-0.8); Absolute Neutrophil Count 2.38 10^3/uL (1.2-6.7); Basophils % 0.7; Eosinophils % 2.9; HCT 42.3 % (40.0-50.0); HGB 14.3 g/dL (13.5-17.5); Lymphocytes % 29.5; MCH 31.8 pg (27.0-33.0); MCHC 33.8 % (32.0-36.0); MPV 10.6 fL (8.0-11.0); Monocytes % 9.2; Neutrophils % 57.7; Nucleated RBC 0 %; Platelet Count 197 10^3/uL (130-400); RDW 12.4 % (11.8-14.1); RDW-SD 43.1 fL; WBC 4.13 10^3/uL (4.4-10.8)
[2020-10-16 11:48] LABS: ALT 25 U/L (16-63); AST 15 U/L (15-37); Albumin 4.1 g/dL (3.4-5.0); Alkaline Phosphatase 76 U/L (46-116); Anion Gap 8.8 mmol/L (3-11); BUN 16 mg/dL (7-18); Bilirubin, Total 0.4 mg/dL (0.2-1.0); CO2 29.2 mmol/L (21.0-32.0); CREATININE 0.8 mg/dL (0.70-1.30); Calcium 9.2 mg/dL (8.5-10.1); Chloride 104 mmol/L (98-107); Glucose 95 mg/dL (74-106); Potassium 4.4 mmol/L (3.5-5.1); Sodium 142 mmol/L (136-145); Total Protein 7.8 g/dL (6.4-8.2)
[2020-10-17 17:28] LABS: PSA, Ultrasensitive <0.01 ng/mL (<= 6.5)
[2020-10-21 12:27] LABS: Testosterone, Total <7.0 ng/dL (240-950)
== END 2020-10-16 02:58 | disposition home or self-care (01) ==
LOC: LBO 02:57
PROVIDERS: PCP Nurse Practitioner Family; Visit Provider Internal Medicine
DX: C61 Malignant neoplasm of prostate (principal)
CPT/HCPCS: 36415; 80053; 84153; 84403; 85025

== ENCOUNTER 2021-01-19 03:27 | Outpatient (CLI) | payer MEDICARE, BC, SELFPAY ==
[2021-01-19 13:29] LABS: Abs Immature Grans 0.01 10^3/uL (0.0-0.06); Absolute Basophil Count 0.03 10^3/uL (0.0-0.2); Absolute Eosinophil Count 0.11 10^3/uL (0.0-0.7); Absolute Monocyte Count 0.34 10^3/uL (0.1-0.8); Absolute Neutrophil Count 2.01 10^3/uL (1.2-6.7); Basophils % 0.8; HGB 13.5 g/dL (13.5-17.5); Immature Grans % 0.3; Lymphocytes % 32.4; MCH 31.7 pg (27.0-33.0); MCHC 32.9 % (32.0-36.0); MCV 96.2 fL (80-95); MPV 11.2 fL (8.0-11.0); Monocytes % 9.2; Neutrophils % 54.3; Nucleated RBC 0 %; Platelet Count 192 10^3/uL (130-400); RBC 4.26 10^6/uL (4.36-5.78); RDW 12.4 % (11.8-14.1); RDW-SD 43.8 fL
[2021-01-19 13:43] LABS: ALT 23 U/L (16-63); AST 17 U/L (15-37); Albumin 3.8 g/dL (3.4-5.0); Alkaline Phosphatase 77 U/L (46-116); Anion Gap 6.2 mmol/L (3-11); BUN 15 mg/dL (7-18); Bilirubin, Total 0.4 mg/dL (0.2-1.0); CO2 29.8 mmol/L (21.0-32.0); CREATININE 0.8 mg/dL (0.70-1.30); Calcium 8.9 mg/dL (8.5-10.1); Chloride 104 mmol/L (98-107); Glucose 97 mg/dL (74-106); Potassium 4.2 mmol/L (3.5-5.1); Sodium 140 mmol/L (136-145); Total Protein 7.5 g/dL (6.4-8.2)
[2021-01-20 18:04] LABS: PSA, Ultrasensitive <0.01 ng/mL (<= 6.5)
[2021-01-23 12:44] LABS: Testosterone, Total <7.0 ng/dL (240-950)
== END 2021-01-19 03:28 | disposition home or self-care (01) ==
LOC: LBO 03:27
PROVIDERS: PCP Nurse Practitioner Family; Visit Provider Internal Medicine
DX: C61 Malignant neoplasm of prostate (principal); C79.51 Secondary malignant neoplasm of bone; Z79.818 Long term (current) use of other agents affecting estrogen receptors and estrogen levels
CPT/HCPCS: 36415; 80053; 84153; 84403; 85025

== ENCOUNTER 2021-04-22 02:37 | Outpatient (CLI) | payer MEDICARE, BC, SELFPAY ==
[2021-04-22 07:27] LABS: Absolute Basophil Count 0.03 10^3/uL (0.0-0.2); Absolute Eosinophil Count 0.18 10^3/uL (0.0-0.7); Absolute Lymphocyte Count 1.24 10^3/uL (1.2-3.4); Absolute Monocyte Count 0.31 10^3/uL (0.1-0.8); Basophils % 0.8; Eosinophils % 4.5; HCT 40.2 % (40.0-50.0); HGB 13.2 g/dL (13.5-17.5); Lymphocytes % 31.3; MCH 31.5 pg (27.0-33.0); MCHC 32.8 % (32.0-36.0); MCV 95.9 fL (80-95); MPV 10.7 fL (8.0-11.0); Monocytes % 7.8; Neutrophils % 55.6; Nucleated RBC 0 %; Platelet Count 205 10^3/uL (130-400); RBC 4.19 10^6/uL (4.36-5.78); RDW 12.5 % (11.8-14.1); RDW-SD 44.1 fL; WBC 3.96 10^3/uL (4.4-10.8)
[2021-04-22 07:39] LABS: ALT 19 U/L (16-63); AST 15 U/L (15-37); Albumin 3.9 g/dL (3.4-5.0); Alkaline Phosphatase 72 U/L (46-116); BUN 16 mg/dL (7-18); Bilirubin, Total 0.5 mg/dL (0.2-1.0); CREATININE 0.9 mg/dL (0.70-1.30); Calcium 8.4 mg/dL (8.5-10.1); Chloride 104 mmol/L (98-107); Glucose 94 mg/dL (74-106); Potassium 4.3 mmol/L (3.5-5.1); Sodium 142 mmol/L (136-145); Total Protein 7.3 g/dL (6.4-8.2)
[2021-04-23 14:58] LABS: PSA, Ultrasensitive <0.01 ng/mL (<= 6.5)
[2021-04-24 12:12] LABS: Testosterone, Total 9.9 ng/dL (240-950)
== END 2021-04-22 02:38 | disposition home or self-care (01) ==
LOC: LBO 02:38
PROVIDERS: PCP Nurse Practitioner Family; Visit Provider Nurse Practitioner Adult Health
DX: C61 Malignant neoplasm of prostate (principal); C79.51 Secondary malignant neoplasm of bone; Z79.818 Long term (current) use of other agents affecting estrogen receptors and estrogen levels
CPT/HCPCS: 36415; 80053; 84153; 84403; 85025

== ENCOUNTER 2021-07-01 16:20 | Outpatient (REF) | payer MEDICARE, BC, SELFPAY | END 2021-07-01 16:21 | disposition home or self-care (01) | LOC: LBN 16:20 | PROVIDERS: PCP Nurse Practitioner Family; Visit Provider Family Medicine | DX: L02.511 Cutaneous abscess of right hand (principal) | CPT/HCPCS: 87077; 87070; 87205 ==

== ENCOUNTER 2021-07-15 02:53 | Outpatient (CLI) | payer MEDICARE, BC, SELFPAY ==
[2021-07-15 12:29] LABS: Abs Immature Grans 0.01 10^3/uL (0.0-0.06); Absolute Basophil Count 0.03 10^3/uL (0.0-0.2); Absolute Eosinophil Count 0.18 10^3/uL (0.0-0.7); Absolute Lymphocyte Count 1.61 10^3/uL (1.2-3.4); Absolute Monocyte Count 0.44 10^3/uL (0.1-0.8); Absolute Neutrophil Count 1.79 10^3/uL (1.2-6.7); Basophils % 0.7; Eosinophils % 4.4; HCT 38.9 % (40.0-50.0); HGB 12.9 g/dL (13.5-17.5); Immature Grans % 0.2; Lymphocytes % 39.7; MCH 31.3 pg (27.0-33.0); MCHC 33.2 % (32.0-36.0); MCV 94.4 fL (80-95); MPV 10.5 fL (8.0-11.0); Monocytes % 10.8; Neutrophils % 44.2; Nucleated RBC 0 %; Platelet Count 202 10^3/uL (130-400); RBC 4.12 10^6/uL (4.36-5.78); RDW 12.6 % (11.8-14.1); RDW-SD 43.8 fL; WBC 4.06 10^3/uL (4.4-10.8)
[2021-07-15 16:57] LABS: Albumin 3.8 g/dL (3.4-5.0); BUN 17 mg/dL (7-18); Bilirubin, Total 0.4 mg/dL (0.2-1.0); CREATININE 0.9 mg/dL (0.70-1.30); Calcium 8.6 mg/dL (8.5-10.1); Glucose 93 mg/dL (74-106); Total Protein 6.7 g/dL (6.4-8.2)
[2021-07-15 16:58] LABS: ALT 22 U/L (16-63); AST 18 U/L (15-37); Alkaline Phosphatase 70 U/L (46-116); Anion Gap 9.4 mmol/L (3-11); CO2 27.6 mmol/L (21.0-32.0); Chloride 105 mmol/L (98-107); Potassium 4.6 mmol/L (3.5-5.1); Sodium 142 mmol/L (136-145)
[2021-07-16 19:10] LABS: PSA, Ultrasensitive <0.01 ng/mL (<= 6.5)
[2021-07-20 13:21] LABS: Testosterone, Total 8.3 ng/dL (240-950)
== END 2021-07-15 02:54 | disposition home or self-care (01) ==
LOC: LBO 02:53
PROVIDERS: PCP Nurse Practitioner Family; Visit Provider Internal Medicine
DX: C61 Malignant neoplasm of prostate (principal); C79.51 Secondary malignant neoplasm of bone; Z79.818 Long term (current) use of other agents affecting estrogen receptors and estrogen levels
CPT/HCPCS: 36415; 80053; 84153; 84403; 85025

== ENCOUNTER 2021-10-20 02:28 | Outpatient (CLI) | payer MEDICARE, BC, SELFPAY ==
[2021-10-20 13:41] LABS: Abs Immature Grans 0.01 10^3/uL (0.0-0.06); Absolute Basophil Count 0.03 10^3/uL (0.0-0.2); Absolute Eosinophil Count 0.16 10^3/uL (0.0-0.7); Absolute Monocyte Count 0.34 10^3/uL (0.1-0.8); Basophils % 0.7; Eosinophils % 3.5; HCT 41.9 % (40.0-50.0); HGB 13.9 g/dL (13.5-17.5); Immature Grans % 0.2; Lymphocytes % 35.2; MCH 31.4 pg (27.0-33.0); MCHC 33.2 % (32.0-36.0); MCV 94.8 fL (80-95); MPV 10.5 fL (8.0-11.0); Monocytes % 7.5; Neutrophils % 52.9; Nucleated RBC 0 %; Platelet Count 209 10^3/uL (130-400); RBC 4.42 10^6/uL (4.36-5.78); RDW 12.3 % (11.8-14.1); RDW-SD 42.8 fL; WBC 4.54 10^3/uL (4.4-10.8)
[2021-10-20 14:33] LABS: ALT 23 U/L (16-63); AST 17 U/L (15-37); Albumin 4.1 g/dL (3.4-5.0); Alkaline Phosphatase 76 U/L (46-116); Anion Gap 8.7 mmol/L (3-11); BUN 13 mg/dL (7-18); Bilirubin, Total 0.4 mg/dL (0.2-1.0); CO2 29.3 mmol/L (21.0-32.0); CREATININE 0.9 mg/dL (0.70-1.30); Calcium 9.4 mg/dL (8.5-10.1); Chloride 103 mmol/L (98-107); Glucose 89 mg/dL (74-106); Potassium 4.2 mmol/L (3.5-5.1); Sodium 141 mmol/L (136-145); Total Protein 7.3 g/dL (6.4-8.2)
[2021-10-22 12:39] LABS: PSA, Ultrasensitive 0.02 ng/mL (<= 6.5)
[2021-10-25 10:58] LABS: Testosterone, Total <7.0 ng/dL (240-950)
== END 2021-10-20 02:29 | disposition home or self-care (01) ==
LOC: LBO 02:28
PROVIDERS: PCP Nurse Practitioner Family; Visit Provider Internal Medicine
DX: C61 Malignant neoplasm of prostate (principal); C79.51 Secondary malignant neoplasm of bone; Z79.818 Long term (current) use of other agents affecting estrogen receptors and estrogen levels
CPT/HCPCS: 36415; 80053; 84153; 84403; 85025

== ENCOUNTER → 2022-01-20 01:35 | Outpatient (CLI) | payer MEDICARE, BC, SELFPAY ==
--- NOTE | 2022-01-20 10:45 | DI.NM_ITS ---
Exam(s) NM BONE SCAN WHOLE BODY GRP EXAM: NM BONE SCAN WHOLE BODY GRP CLINICAL HISTORY: PROSTATE CA, METS, C61; ASSESS TREATMENT. TECHNIQUE: Injected Dose: 25 mCi Tc-99m MDP Delayed Images: 2-3 hours. COMPARISON: CT CT CHEST/ABD/PEL W from 03/22/2019 NM WHOLE BODY BONE SCAN from 03/22/2019 FINDINGS: Photopenic zone is again noted in the left hip consistent with the presence of a prosthesis at this l evel. There is uptake seen at the level of the left ischial tuberosity, suspicious for metastatic os seous disease and there is also some uptake seen in or just above the superior aspect of the left hip acetabulum, also regarded with suspicion. No other abnormal uptake in the femur to suggest other os seous metastatic disease nor loosening of the prosthesis. Also possibly significant is subtle absence of normal osseous uptake in the inferior pubic ramus on t he right side. There is also focus of increased uptake seen in the region of the right sacroiliac joint, suspicious and indeed showing blastic metastases on the CT scan of March 2019. Some focal uptake seen in the rig ht side of the L4-5 lumbar spine level may be degenerative but has increased when compared to the Mar nuclear study. There is no other abnormal spinal uptake nor skull uptake nor abnormal uptake in the rib cages. No abnormal uptake seen in the long bones of the upper and lower extremities. IMPRESSION: 1. Findings as above which are suspicious for metastatic osseous disease in the pelvis and possibly a t L4-5 level (although this may just be incidental increasing degenerative change). Appropriate foll ow-up here would be CT scan of the pelvis, including the lower lumbar spine levels. DATA REPOSITORY:
[2022-01-20 11:37] LABS: Abs Immature Grans 0.01 10^3/uL (0.0-0.06); Absolute Basophil Count 0.03 10^3/uL (0.0-0.2); Absolute Eosinophil Count 0.13 10^3/uL (0.0-0.7); Absolute Lymphocyte Count 1.08 10^3/uL (1.2-3.4); Absolute Monocyte Count 0.44 10^3/uL (0.1-0.8); Absolute Neutrophil Count 2.02 10^3/uL (1.2-6.7); Basophils % 0.8; Eosinophils % 3.5; HCT 36.5 % (40.0-50.0); HGB 12.1 g/dL (13.5-17.5); Immature Grans % 0.3; Lymphocytes % 29.1; MCH 31.9 pg (27.0-33.0); MCHC 33.2 % (32.0-36.0); MCV 96 fL (80-95); MPV 10.9 fL (8.0-11.0); Monocytes % 11.9; Neutrophils % 54.4; Platelet Count 216 10^3/uL (130-400); RBC 3.79 10^6/uL (4.36-5.78); RDW 12.7 % (11.8-14.1); RDW-SD 44.7 fL; WBC 3.71 10^3/uL (4.4-10.8)
[2022-01-20 11:50] LABS: ALT 22 U/L (16-63); AST 19 U/L (15-37); Albumin 3.8 g/dL (3.4-5.0); Alkaline Phosphatase 62 U/L (46-116); Anion Gap 7.4 mmol/L (3-11); BUN 15 mg/dL (7-18); Bilirubin, Total 0.5 mg/dL (0.2-1.0); CO2 28.6 mmol/L (21.0-32.0); CREATININE 0.9 mg/dL (0.70-1.30); Calcium 8.8 mg/dL (8.5-10.1); Chloride 102 mmol/L (98-107); Glucose 96 mg/dL (74-106); Potassium 4.2 mmol/L (3.5-5.1); Sodium 138 mmol/L (136-145); Total Protein 7.1 g/dL (6.4-8.2)
[2022-01-22 13:24] LABS: PSA, Ultrasensitive 0.02 ng/mL (<= 6.5)
[2022-01-27 17:05] LABS: Testosterone, Total 7.5 ng/dL (240-950)
== END ==
PROVIDERS: PCP Nurse Practitioner Family; Visit Provider Internal Medicine
DX: C61 Malignant neoplasm of prostate (principal); C79.51 Secondary malignant neoplasm of bone; Z96.642 Presence of left artificial hip joint
CPT/HCPCS: 78306; 80053; 84153; 84403; 85025

== ENCOUNTER 2022-05-06 05:11 | Outpatient (CLI) | payer MEDICARE, BC, SELFPAY ==
[2022-05-06 14:53] LABS: Abs Immature Grans 0.01 10^3/uL (0.0-0.06); Absolute Basophil Count 0.03 10^3/uL (0.0-0.2); Absolute Eosinophil Count 0.21 10^3/uL (0.0-0.7); Absolute Lymphocyte Count 1.61 10^3/uL (1.2-3.4); Absolute Monocyte Count 0.44 10^3/uL (0.1-0.8); Absolute Neutrophil Count 2.71 10^3/uL (1.2-6.7); Basophils % 0.6; Eosinophils % 4.2; HCT 39.3 % (40.0-50.0); HGB 13.5 g/dL (13.5-17.5); Immature Grans % 0.2; Lymphocytes % 32.1; MCH 32.1 pg (27.0-33.0); MCHC 34.4 % (32.0-36.0); MCV 93 fL (80-95); MPV 10.3 fL (8.0-11.0); Monocytes % 8.8; Neutrophils % 54.1; Platelet Count 200 10^3/uL (130-400); RBC 4.21 10^6/uL (4.36-5.78); RDW 12.7 % (11.8-14.1); RDW-SD 43.4 fL; WBC 5.01 10^3/uL (4.4-10.8)
[2022-05-06 16:47] LABS: ALT 19 U/L (16-63); AST 16 U/L (15-37); Albumin 3.9 g/dL (3.4-5.0); Alkaline Phosphatase 81 U/L (46-116); Anion Gap 6.9 mmol/L (3-11); BUN 22 mg/dL (7-18); Bilirubin, Total 0.4 mg/dL (0.2-1.0); CO2 32.1 mmol/L (21.0-32.0); CREATININE 1.1 mg/dL (0.70-1.30); Calcium 9.6 mg/dL (8.5-10.1); Chloride 103 mmol/L (98-107); Estimated GFR 70.01 (mL/min/1.73m2); Glucose 106 mg/dL (74-106); Potassium 4.6 mmol/L (3.5-5.1); Sodium 142 mmol/L (136-145); Total Protein 7.6 g/dL (6.4-8.2)
[2022-05-08 12:27] LABS: PSA, Ultrasensitive 0.03 ng/mL (<= 6.5)
[2022-05-13 11:24] LABS: Testosterone, Total <7.0 ng/dL (240-950)
== END 2022-05-06 05:12 | disposition home or self-care (01) ==
LOC: LBO 05:11
PROVIDERS: PCP Nurse Practitioner Family; Visit Provider Internal Medicine
DX: C61 Malignant neoplasm of prostate (principal)
CPT/HCPCS: 36415; 80053; 84153; 84403; 85025

== ENCOUNTER 2022-07-27 02:53 | Outpatient (CLI) | payer MEDICARE, BC, SELFPAY ==
[2022-07-27 11:56] LABS: Abs Immature Grans 0.02 10^3/uL (0.0-0.06); Absolute Basophil Count 0.04 10^3/uL (0.0-0.2); Absolute Eosinophil Count 0.15 10^3/uL (0.0-0.7); Absolute Lymphocyte Count 1.22 10^3/uL (1.2-3.4); Absolute Monocyte Count 0.47 10^3/uL (0.1-0.8); Absolute Neutrophil Count 5.29 10^3/uL (1.2-6.7); Basophils % 0.6; Eosinophils % 2.1; HCT 40.8 % (40.0-50.0); HGB 13.5 g/dL (13.5-17.5); Immature Grans % 0.3; MCH 31.3 pg (27.0-33.0); MCHC 33.1 % (32.0-36.0); MCV 95 fL (80-95); MPV 10.4 fL (8.0-11.0); Monocytes % 6.5; Neutrophils % 73.5; Platelet Count 218 10^3/uL (130-400); RBC 4.31 10^6/uL (4.36-5.78); RDW 12.4 % (11.8-14.1); RDW-SD 43.6 fL; WBC 7.19 10^3/uL (4.4-10.8)
[2022-07-27 13:00] LABS: ALT 18 U/L (16-63); AST 14 U/L (15-37); Alkaline Phosphatase 74 U/L (46-116); Anion Gap 7.2 mmol/L (3-11); BUN 16 mg/dL (7-18); Bilirubin, Total 0.5 mg/dL (0.2-1.0); CO2 28.8 mmol/L (21.0-32.0); CREATININE 0.9 mg/dL (0.70-1.30); Calcium 9.2 mg/dL (8.5-10.1); Chloride 102 mmol/L (98-107); Estimated GFR 89.07 (mL/min/1.73m2); Glucose 89 mg/dL (74-106); Potassium 4.1 mmol/L (3.5-5.1); Sodium 138 mmol/L (136-145); Total Protein 7.7 g/dL (6.4-8.2)
[2022-07-28 15:19] LABS: PSA, Ultrasensitive 0.03 ng/mL (<= 6.5)
[2022-07-31 16:56] LABS: Testosterone, Total 7.3 ng/dL (240-950)
== END 2022-07-27 02:54 | disposition home or self-care (01) ==
LOC: LBO 02:53
PROVIDERS: PCP Nurse Practitioner Family; Visit Provider Internal Medicine
DX: C61 Malignant neoplasm of prostate (principal)
CPT/HCPCS: 36415; 80053; 84153; 84403; 85025

== ENCOUNTER 2022-10-25 02:39 | Outpatient (CLI) | payer MEDICARE, BC, SELFPAY ==
[2022-10-25 14:16] LABS: Abs Immature Grans 0.01 10^3/uL (0.0-0.06); Absolute Basophil Count 0.03 10^3/uL (0.0-0.2); Absolute Eosinophil Count 0.16 10^3/uL (0.0-0.7); Absolute Lymphocyte Count 1.56 10^3/uL (1.2-3.4); Absolute Monocyte Count 0.45 10^3/uL (0.1-0.8); Absolute Neutrophil Count 3.27 10^3/uL (1.2-6.7); Basophils % 0.5; Eosinophils % 2.9; HCT 40.5 % (40.0-50.0); HGB 13.8 g/dL (13.5-17.5); Immature Grans % 0.2; Lymphocytes % 28.5; MCH 31.7 pg (27.0-33.0); MCHC 34.1 % (32.0-36.0); MCV 93 fL (80-95); MPV 10.9 fL (8.0-11.0); Monocytes % 8.2; Neutrophils % 59.7; Platelet Count 196 10^3/uL (130-400); RBC 4.36 10^6/uL (4.36-5.78); RDW 12.5 % (11.8-14.1); RDW-SD 42.8 fL; WBC 5.48 10^3/uL (4.4-10.8)
[2022-10-25 14:54] LABS: ALT 19 U/L (16-63); AST 16 U/L (15-37); Albumin 4.3 g/dL (3.4-5.0); Alkaline Phosphatase 74 U/L (46-116); Anion Gap 8.2 mmol/L (3-11); BUN 15 mg/dL (7-18); Bilirubin, Total 0.4 mg/dL (0.2-1.0); CO2 28.8 mmol/L (21.0-32.0); Calcium 9.4 mg/dL (8.5-10.1); Chloride 104 mmol/L (98-107); Estimated GFR 78.49 (mL/min/1.73m2); Glucose 100 mg/dL (74-106); Potassium 4.1 mmol/L (3.5-5.1); Sodium 141 mmol/L (136-145); Total Protein 7.8 g/dL (6.4-8.2)
[2022-10-27 12:17] LABS: PSA, Ultrasensitive 0.03 ng/mL (<= 6.5)
[2022-10-30 00:51] LABS: Testosterone, Total 10 ng/dL (240-950)
== END 2022-10-25 02:40 | disposition home or self-care (01) ==
LOC: LBO 02:39
PROVIDERS: PCP Nurse Practitioner Family; Visit Provider Internal Medicine
DX: C61 Malignant neoplasm of prostate (principal)
CPT/HCPCS: 36415; 80053; 84153; 84403; 85025

== ENCOUNTER 2023-01-19 03:08 | Outpatient (CLI) | payer MEDICARE, BC, SELFPAY ==
[2023-01-19 10:49] LABS: Abs Immature Grans 0.01 10^3/uL (0.0-0.06); Absolute Basophil Count 0.03 10^3/uL (0.0-0.2); Absolute Lymphocyte Count 1.19 10^3/uL (1.2-3.4); Absolute Monocyte Count 0.36 10^3/uL (0.1-0.8); Basophils % 0.7; Eosinophils % 2.3; HCT 39.6 % (40.0-50.0); HGB 13.5 g/dL (13.5-17.5); Immature Grans % 0.2; Lymphocytes % 27.1; MCH 32.2 pg (27.0-33.0); MCHC 34.1 % (32.0-36.0); MCV 95 fL (80-95); MPV 10.6 fL (8.0-11.0); Monocytes % 8.2; Neutrophils % 61.5; Platelet Count 194 10^3/uL (130-400); RBC 4.19 10^6/uL (4.36-5.78); RDW 12.6 % (11.8-14.1); RDW-SD 43.5 fL; WBC 4.39 10^3/uL (4.4-10.8)
[2023-01-19 11:06] LABS: ALT 24 U/L (16-63); AST 20 U/L (15-37); Albumin 3.9 g/dL (3.4-5.0); Alkaline Phosphatase 63 U/L (46-116); Anion Gap 7.5 mmol/L (3-11); BUN 18 mg/dL (7-18); Bilirubin, Total 0.4 mg/dL (0.2-1.0); CO2 28.5 mmol/L (21.0-32.0); CREATININE 0.8 mg/dL (0.70-1.30); Calcium 8.9 mg/dL (8.5-10.1); Chloride 102 mmol/L (98-107); Estimated GFR 92.29 (mL/min/1.73m2); Glucose 93 mg/dL (74-106); Potassium 4.3 mmol/L (3.5-5.1); Sodium 138 mmol/L (136-145); Total Protein 7.5 g/dL (6.4-8.2)
[2023-01-20 17:07] LABS: PSA, Ultrasensitive 0.05 ng/mL (<= 6.5)
[2023-01-24 10:13] LABS: Testosterone, Total <7.0 ng/dL (240-950)
== END 2023-01-19 03:09 | disposition home or self-care (01) ==
LOC: LBO 03:09
PROVIDERS: PCP Nurse Practitioner Family; Visit Provider Internal Medicine
DX: C61 Malignant neoplasm of prostate (principal)
CPT/HCPCS: 36415; 80053; 84153; 84403; 85025

== ENCOUNTER 2023-05-10 10:08 | Outpatient (CLI) | payer MEDICARE, BC, SELFPAY ==
[2023-05-10 12:16] LABS: Abs Immature Grans 0.01 10^3/uL (0.0-0.06); Absolute Basophil Count 0.03 10^3/uL (0.0-0.2); Absolute Eosinophil Count 0.14 10^3/uL (0.0-0.7); Absolute Lymphocyte Count 1.45 10^3/uL (1.2-3.4); Absolute Monocyte Count 0.49 10^3/uL (0.1-0.8); Absolute Neutrophil Count 4.01 10^3/uL (1.2-6.7); Basophils % 0.5; Eosinophils % 2.3; HCT 38.8 % (40.0-50.0); HGB 12.9 g/dL (13.5-17.5); Immature Grans % 0.2; Lymphocytes % 23.7; MCH 31.5 pg (27.0-33.0); MCHC 33.2 % (32.0-36.0); MCV 95 fL (80-95); MPV 10.6 fL (8.0-11.0); Neutrophils % 65.3; Platelet Count 216 10^3/uL (130-400); RDW 12.6 % (11.8-14.1); RDW-SD 43.8 fL; WBC 6.13 10^3/uL (4.4-10.8)
[2023-05-10 12:30] LABS: ALT 29 U/L (16-63); AST 24 U/L (15-37); Albumin 3.6 g/dL (3.4-5.0); Alkaline Phosphatase 75 U/L (46-116); Anion Gap 5.8 mmol/L (3-11); BUN 16 mg/dL (7-18); Bilirubin, Total 0.4 mg/dL (0.2-1.0); CO2 30.2 mmol/L (21.0-32.0); CREATININE 0.9 mg/dL (0.70-1.30); Calcium 9.2 mg/dL (8.5-10.1); Chloride 103 mmol/L (98-107); Estimated GFR 88.51 (mL/min/1.73m2); Glucose 92 mg/dL (74-106); Potassium 4.3 mmol/L (3.5-5.1); Sodium 139 mmol/L (136-145)
[2023-05-12 11:26] LABS: PSA, Ultrasensitive 0.07 ng/mL (<= 6.5)
[2023-05-13 17:15] LABS: Testosterone, Total <7.0 ng/dL (240-950)
== END 2023-05-10 10:09 | disposition home or self-care (01) ==
LOC: LBO 10:08
PROVIDERS: PCP Nurse Practitioner Family; Visit Provider Internal Medicine
DX: C61 Malignant neoplasm of prostate (principal)
CPT/HCPCS: 36415; 80053; 84153; 84403; 85025

== ENCOUNTER 2023-07-25 04:29 | Outpatient (CLI) | payer MEDICARE, BC, SELFPAY ==
[2023-07-25 11:20] LABS: Abs Immature Grans 0.01 10^3/uL (0.0-0.06); Absolute Basophil Count 0.03 10^3/uL (0.0-0.2); Absolute Eosinophil Count 0.14 10^3/uL (0.0-0.7); Absolute Lymphocyte Count 0.93 10^3/uL (1.2-3.4); Absolute Monocyte Count 0.36 10^3/uL (0.1-0.8); Absolute Neutrophil Count 2.84 10^3/uL (1.2-6.7); Basophils % 0.7; Eosinophils % 3.2; HCT 40.1 % (40.0-50.0); HGB 13.5 g/dL (13.5-17.5); Immature Grans % 0.2; Lymphocytes % 21.6; MCHC 33.7 % (32.0-36.0); MCV 92 fL (80-95); MPV 10.6 fL (8.0-11.0); Monocytes % 8.4; Neutrophils % 65.9; Platelet Count 227 10^3/uL (130-400); RBC 4.35 10^6/uL (4.36-5.78); RDW 12.6 % (11.8-14.1); RDW-SD 42.7 fL; WBC 4.31 10^3/uL (4.4-10.8)
[2023-07-25 11:37] LABS: ALT 19 U/L (16-63); AST 17 U/L (15-37); Albumin 3.8 g/dL (3.4-5.0); Alkaline Phosphatase 94 U/L (46-116); Anion Gap 5.8 mmol/L (3-11); BUN 16 mg/dL (7-18); Bilirubin, Total 0.3 mg/dL (0.2-1.0); CO2 28.2 mmol/L (21.0-32.0); CREATININE 0.9 mg/dL (0.70-1.30); Calcium 9.3 mg/dL (8.5-10.1); Chloride 102 mmol/L (98-107); Estimated GFR 88.51 (mL/min/1.73m2); Glucose 100 mg/dL (74-106); Potassium 4.4 mmol/L (3.5-5.1); Sodium 136 mmol/L (136-145); Total Protein 7.8 g/dL (6.4-8.2)
[2023-07-27 20:30] LABS: PSA, Ultrasensitive 0.07 ng/mL (<= 6.5)
[2023-07-29 12:18] LABS: Testosterone, Total <7.0 ng/dL (240-950)
== END 2023-07-25 04:30 | disposition home or self-care (01) ==
LOC: LBO 04:29
PROVIDERS: PCP Nurse Practitioner Family; Visit Provider Internal Medicine
DX: C61 Malignant neoplasm of prostate (principal)
CPT/HCPCS: 36415; 80053; 84153; 84403; 85025

== ENCOUNTER 2023-10-18 03:33 | Outpatient (CLI) | payer MEDICARE, BC, SELFPAY ==
[2023-10-18 11:35] LABS: Abs Immature Grans 0.01 10^3/uL (0.0-0.06); Absolute Basophil Count 0.02 10^3/uL (0.0-0.2); Absolute Eosinophil Count 0.13 10^3/uL (0.0-0.7); Absolute Lymphocyte Count 1.25 10^3/uL (1.2-3.4); Absolute Neutrophil Count 1.79 10^3/uL (1.2-6.7); Basophils % 0.6; Eosinophils % 3.6; HCT 37.9 % (40.0-50.0); HGB 12.4 g/dL (13.5-17.5); Immature Grans % 0.3; Lymphocytes % 34.7; MCH 30.6 pg (27.0-33.0); MCHC 32.7 % (32.0-36.0); MCV 94 fL (80-95); MPV 10.9 fL (8.0-11.0); Monocytes % 11.1; Neutrophils % 49.7; Platelet Count 193 10^3/uL (130-400); RBC 4.05 10^6/uL (4.36-5.78); RDW 12.6 % (11.8-14.1); RDW-SD 43.6 fL
[2023-10-18 11:52] LABS: ALT 19 U/L (16-63); AST 17 U/L (15-37); Albumin 3.8 g/dL (3.4-5.0); Alkaline Phosphatase 61 U/L (46-116); Anion Gap 6.1 mmol/L (3-11); BUN 16 mg/dL (7-18); Bilirubin, Total 0.4 mg/dL (0.2-1.0); CO2 29.9 mmol/L (21.0-32.0); CREATININE 0.8 mg/dL (0.70-1.30); Calcium 8.9 mg/dL (8.5-10.1); Chloride 106 mmol/L (98-107); Estimated GFR 91.72 (mL/min/1.73m2); Glucose 96 mg/dL (74-106); Potassium 4.7 mmol/L (3.5-5.1); Sodium 142 mmol/L (136-145); Total Protein 7.2 g/dL (6.4-8.2)
[2023-10-20 13:25] LABS: PSA, Ultrasensitive 0.09 ng/mL (<= 6.5)
[2023-10-21 16:28] LABS: Testosterone, Total <7.0 ng/dL (240-950)
== END 2023-10-18 03:34 | disposition home or self-care (01) ==
LOC: LBO 03:34
PROVIDERS: PCP Nurse Practitioner Family; Visit Provider Internal Medicine
DX: C61 Malignant neoplasm of prostate (principal)
CPT/HCPCS: 36415; 80053; 84153; 84403; 85025

== ENCOUNTER 2024-01-11 12:48 | Outpatient (CLI) | payer MEDICARE, BC, SELFPAY ==
[2024-01-11 12:23] LABS: Abs Immature Grans 0.01 10^3/uL (0.0-0.06); Absolute Basophil Count 0.02 10^3/uL (0.0-0.2); Absolute Eosinophil Count 0.18 10^3/uL (0.0-0.7); Absolute Lymphocyte Count 1.38 10^3/uL (1.2-3.4); Absolute Monocyte Count 0.32 10^3/uL (0.1-0.8); Basophils % 0.5 %; Eosinophils % 4.5 %; HCT 41.2 % (40.0-50.0); HGB 13.4 g/dL (13.5-17.5); Immature Grans % 0.2 %; Lymphocytes % 34.4 %; MCH 31.5 pg (27.0-33.0); MCHC 32.5 % (32.0-36.0); MCV 97 fL (80-95); MPV 10.5 fL (8.0-11.0); Neutrophils % 52.4 %; Platelet Count 200 10^3/uL (130-400); RBC 4.26 10^6/uL (4.36-5.78); RDW 12.7 % (11.8-14.1); RDW-SD 45.5 fL; WBC 4.01 10^3/uL (4.4-10.8)
[2024-01-11 12:38] LABS: ALT 23 U/L (16-63); AST 18 U/L (15-37); Albumin 4.1 g/dL (3.4-5.0); Alkaline Phosphatase 68 U/L (46-116); Anion Gap 9.1 mmol/L (3-11); BUN 18 mg/dL (7-18); Bilirubin, Total 0.4 mg/dL (0.2-1.0); CO2 28.9 mmol/L (21.0-32.0); CREATININE 0.8 mg/dL (0.70-1.30); Calcium 8.8 mg/dL (8.5-10.1); Chloride 105 mmol/L (98-107); Estimated GFR 91.72 (mL/min/1.73m2); Glucose 95 mg/dL (74-106); Potassium 4.6 mmol/L (3.5-5.1); Sodium 143 mmol/L (136-145); Total Protein 7.8 g/dL (6.4-8.2)
[2024-01-13 15:17] LABS: PSA, Ultrasensitive 0.15 ng/mL (<= 6.5)
[2024-01-14 16:34] LABS: Testosterone, Total <7.0 ng/dL (240-950)
== END 2024-01-11 12:49 | disposition home or self-care (01) ==
LOC: LBO 12:50
PROVIDERS: Visit Provider Internal Medicine
DX: C61 Malignant neoplasm of prostate (principal)
CPT/HCPCS: 36415; 80053; 84153; 84403; 85025